=== PATIENT | male | born 1995 | race American Indian/Alaskan Native ===

== ENCOUNTER 2016-04-12 06:38 | Emergency (ER) | payer SELFPAY ==
[2016-04-12 07:01] VITALS: BP 120/77
[2016-04-12] MEDS ORDERED: TORADOL IM ONE (09:50)
--- NOTE | 2016-04-12 10:27 | Emergency Department Report ---
ED Abdominal Pain HPI - General Chief Complaint: Rectal Pain Stated Complaint: HEMORRHOID Time Seen by Provider: 04/12/16 10:21 Source: patient Mode of arrival: Ambulatory Limitations: No Limitations - History of Present Illness Initial Comments: Patient reports flareup of hemorrhoids with minimal bleeding that started one half week ago. He has tried Preparation H, Tylenol, high fiber diet, increase fluids and sitz bathes, however to no avail. Complaint: other (hemorrhoids) Onset/Timin -: week(s) Radiation: other (rectum) Migration to: no migration Severity scale (0 -10): 7 Quality: aching Consistency: constant Improves With: nothing Worsens With: bowel movement, other (sitting) Context: other (none) Associated Symptoms: denies other symptoms. denies: nausea, vomiting, diarrhea , fever, chills, constipation, dysuria, hematemesis, hematochezia, melena, hematuria, anorexia, syncope Treatments Prior to Arrival: other (Tylenol) - Related Data Previous Rx's Medication Instructions Recorded Last Taken Type Cephalexin [Keflex] 500 mg PO BID #20 capsule 08/21/13 Unknown Rx HYDROcodone/APAP 5-325 [[place] 1 each PO Q6HR PRN #14 tablet 08/21/13 Unknown Rx 5/325 mg] Sulfamethoxazole/Trimethoprim 1 each PO BID #20 tablet 08/21/13 Unknown Rx [Bactrim Ds] HYDROcodone/APAP 5-325 [[place] 1 each PO Q6HR PRN #16 tablet 10/26/13 Unknown Rx 5-325 mg TAB] Sulfamethoxazole/Trimethoprim 1 each PO Q12H #30 tablet 10/26/13 Unknown Rx [Bactrim Ds] Docusate Sodium [Colace] 100 mg PO BID PRN #30 capsule 04/12/16 Unknown Rx Hydrocortisone/Pramoxine [Analpram 1 applic RC QID #1 cream 04/12/16 Unknown Rx Hc 1% Cream] Ibuprofen [Motrin 800 MG tab] 800 mg PO Q8HR PRN #30 tablet 04/12/16 Unknown Rx Allergies Allergy/AdvReac Type Severity Reaction Status Date / Time No Known Allergies Allergy Verified 04/12/16 07:01 ED Review of Systems ROS: Stated complaint: HEMORRHOID Other details as noted in HPI Constitutional: denies: chills, diaphoresis, fever, malaise, weakness Respiratory: denies: cough, orthopnea, shortness of breath, SOB with exertion, SOB at rest, stridor, wheezing Cardiovascular: denies: chest pain, palpitations, dyspnea on exertion, orthopnea , edema, syncope, paroxysmal nocturnal dyspnea Gastrointestinal: other (hemorroids). denies: abdominal pain, nausea, vomiting , diarrhea, constipation, hematemesis, melena, hematochezia Skin: denies: rash, lesions, change in color, change in hair/nails, pruritus ED Past Medical Hx - Past Medical History Additional medical history: Boils - Surgical History Additional Surgical History: abscess I & D - Social History Smoking Status: Never Smoker Substance Use Type: None - Medications Home Medications: Home Medications Medication Instructions Recorded Confirmed Last Taken Type Cephalexin [Keflex] 500 mg PO BID #20 capsule 08/21/13 Unknown Rx HYDROcodone/APAP 5-325 [[place] 1 each PO Q6HR PRN #14 tablet 08/21/13 Unknown Rx 5/325 mg] Sulfamethoxazole/Trimethoprim 1 each PO BID #20 tablet 08/21/13 Unknown Rx [Bactrim Ds] HYDROcodone/APAP 5-325 [[place] 1 each PO Q6HR PRN #16 tablet 10/26/13 Unknown Rx 5-325 mg TAB] Sulfamethoxazole/Trimethoprim 1 each PO Q12H #30 tablet 10/26/13 Unknown Rx [Bactrim Ds] Docusate Sodium [Colace] 100 mg PO BID PRN #30 capsule 04/12/16 Unknown Rx Hydrocortisone/Pramoxine [Analpram 1 applic RC QID #1 cream 04/12/16 Unknown Rx Hc 1% Cream] Ibuprofen [Motrin 800 MG tab] 800 mg PO Q8HR PRN #30 tablet 04/12/16 Unknown Rx ED Physical Exam - General Limitations: No Limitations General appearance: alert, in no apparent distress - ENT ENT exam: Present: normal exam, mucous membranes moist. Absent: mucous membranes dry - Respiratory Respiratory exam: Present: normal lung sounds bilaterally. Absent: respiratory distress, wheezes, rales, rhonchi, stridor, chest wall tenderness, accessory muscle use, decreased breath sounds, prolonged expiratory - Cardiovascular Cardiovascular Exam: Present: regular rate, normal rhythm, normal heart sounds. Absent: systolic murmur, diastolic murmur, rubs, gallop, clicks, JVD, S3, S4 - GI/Abdominal GI/Abdominal exam: Present: soft, normal bowel sounds. Absent: distended, tenderness, guarding, rebound, rigid - Rectal Rectal exam: Present: normal rectal tone, hemorrhoids (first degree, fleshy, no protrusion, prolapse, thrombus or bleeding noted), tenderness (during examination). Absent: black stool, bloody stool, fecal impaction, mass, prostate tenderness, prostate enlargement - Extremities Exam Extremities exam: Present: normal inspection, full ROM, normal capillary refill. Absent: tenderness, pedal edema, joint swelling, calf tenderness - Back Exam Back exam: Present: normal inspection. Absent: CVA tenderness (R), CVA tenderness (L) - Neurological Exam Neurological exam: Present: alert, oriented X3, CN II-XII intact, normal gait, reflexes normal. Absent: motor sensory deficit - Skin Skin exam: Present: warm, dry, intact, normal color. Absent: rash ED Course Vital Signs 04/12/16 06:59 Temperature 98.7 F Pulse Rate 80 Respiratory 18 Rate Blood Pressure 120/77 O2 Sat by Pulse 98 Oximetry - Reevaluation(s) Reevaluation #1: 04/12/16 10:33 analgesic ordered ED Medical Decision Making - Lab Data Vital Signs 04/12/16 06:59 Temperature 98.7 F Pulse Rate 80 Respiratory 18 Rate Blood Pressure 120/77 O2 Sat by Pulse 98 Oximetry - Medical Decision Making During the course of ED, all other systems are unremarkable except for documentation in HPI. Patient was sent home with prescriptions for Colace, ibuprofen and Analpram HC, instructed to follow with selective referrals given at discharge, he verbalized understanding - Differential Diagnosis Hemorrhoids, Anal Fissure, Condyloma Critical care attestation.: If time is entered above; I have spent that time in minutes in the direct care of this critically ill patient, excluding procedure time. ED Disposition Clinical Impression: Acute hemorrhoid Disposition: DISCHARGED TO HOME OR SELFCARE Is pt being admited?: No Does the pt Need Aspirin: No Condition: Stable Instructions: Hemorrhoids (ED) Additional Instructions: Take medication as directed. Continue with sitz baths 3 times a day. Follow up with the selective referrals given at discharge. Return back to the ED for worsening symptoms or concerns Prescriptions: Hydrocortisone/Pramoxine [Analpram Hc 1% Cream] 1 applic RC QID #1 cream Docusate Sodium [Colace] 100 mg PO BID PRN #30 capsule PRN Reason: Stool Softner Ibuprofen [Motrin 800 MG tab] 800 mg PO Q8HR PRN #30 tablet PRN Reason: Pain Referrals: REINALDO IRVIN MD [Staff Physician] - 3-5 Days BABS MICHELLE MD [Staff Physician] - 3-5 Days LIZZIE NOVAK MD [Staff Physician] - 3-5 Days Forms: Work/School Release Form(ED) Time of Disposition: 10:30
== END 2016-04-12 10:50 | disposition home or self-care (01) ==
LOC: ED 06:38
DX: K64.9 Unspecified hemorrhoids (principal)
CPT/HCPCS: 96372; 99282; J1885